=== PATIENT | female | born 1970 | race Caucasian/White ===

== ENCOUNTER → 2016-10-10 | Outpatient (CLI) | payer BC ==
[~2016-10-10] MED LIST: ASPCH81X PO; ATV1 PO; CYCL10TA6 PO; LEVO125T72 PO; NXM/40 PO; OMEG10007 PO; PHEN37.5; VITA10004 PO
--- NOTE | 2016-10-10 10:42 | DIAGNOSTIC IMAGING REPORT ---
ULTRASOUND OF THE THYROID GLAND CLINICAL HISTORY: Hyperthyroidism. Thyroid nodules. COMPARISON STUDY: Thyroid ultrasound dated 02/20/2015. TECHNIQUE: Real-time, grayscale, and color flow sonography of the thyroid gland is performed utilizing a high-frequency linear transducer. Images are reviewed in the transverse and longitudinal planes. FINDINGS: Right lobe: The right lobe of the thyroid gland is slightly diminutive and heterogeneous in echotexture, measuring 3.7 x 1.1 x 1.0 cm. A hypoechoic nodule in the upper pole measures 4 mm (previously measured 3 mm). Left lobe: The left lobe of the thyroid gland is slightly diminutive and heterogeneous in echotexture, measuring 3.4 x 0.9 x 1.2 cm. Isthmus: The thyroid isthmus is normal in appearance and measures 0.2 cm in AP diameter. IMPRESSION: 1. The thyroid gland is slightly diminutive and heterogeneous in echotexture. Correlation with serum thyroid function studies will be required. 2. A subcentimeter nodule in the right lobe is of doubtful significance. Electronically signed by: Vinod Hurley M.D. 10/10/2016 10:41 AM Dictated Date/Time: 10/10/2016 10:39 AM
== END | disposition home or self-care (01) ==
LOC: C.ULTR 10:12
PROVIDERS: ATTEND Family Medicine
DX: E66.3 Overweight (principal); E03.9 Hypothyroidism, unspecified; M54.9 Dorsalgia, unspecified; E04.2 Nontoxic multinodular goiter

== ENCOUNTER → 2017-01-05 | Outpatient (CLI) | payer BC ==
--- NOTE | 2017-01-05 18:25 | DIAGNOSTIC IMAGING REPORT ---
Brain MRI WITHOUT CONTRAST HISTORY: Headache ZOSTER WITHOUT COMPLICATIONS TECHNIQUE: Multiplanar multisequence MRI of the brain was performed without the use of contrast. COMPARISON STUDY: 10/06/2010 FINDINGS: There are no areas of restricted diffusion to suggest acute infarction. The midline structures are intact. The paranasal sinuses are clear. The mastoid air cells are clear. The ventricles and sulci are within normal limits for age. There is no mass, hematoma, midline shift. The major vascular flow-voids at the skull base are well maintained. Multiple punctate foci of increased signal over the frontal parietal convexities including subcortical and periventricular regions. These are unchanged from the prior study. Ventricular system is midline. Cerebellar tonsils are somewhat low-lying. IMPRESSION: 1. No change from the prior exam. 2. Several small foci of increased signal over the cerebral convexities bilaterally considered nonprogressive. 3. Low-lying cerebellar tonsils also unchanged Electronically signed by: Jared Izquierdo M.D. 01/05/2017 6:23 PM Dictated Date/Time: 01/05/2017 6:17 PM
== END | disposition home or self-care (01) ==
LOC: C.MRI 17:40
PROVIDERS: ATTEND Family Medicine
DX: B02.9 Zoster without complications (principal)

== ENCOUNTER → 2017-04-11 | Outpatient (CLI) | payer BC ==
--- NOTE | 2017-04-12 07:55 | MAMMOGRAPHY REPORT ---
BILATERAL DIGITAL SCREENING MAMMOGRAM TOMOSYNTHESIS WITH CAD: 04/11/2017 CLINICAL HISTORY: Routine screening. Patient has no complaints. TECHNIQUE: Breast tomosynthesis in addition to standard 2D mammography was performed. Current study was also evaluated with a Computer Aided Detection (CAD) system. COMPARISON: Comparison is made to exams dated: 03/31/2016 mammogram, 02/17/2015 mammogram, 12/30/2013 ma mmogram, 12/20/2012 mammogram, 11/10/2011 mammogram, and 11/03/2011 mammogram - [facility]. BREAST COMPOSITION: There are scattered areas of fibroglandular density in both breasts. There have been mild involutional changes compared to more remote prior mammograms. FINDINGS: No suspicious mass, architectural distortion or cluster of suspicious microcalcifications is seen. IMPRESSION: ACR BI-RADS CATEGORY 1: NEGATIVE There is no mammographic evidence of malignancy. A 1 year screening mammogram is recommended. The pa tient will receive written notification of the results. Approximately 10% of breast cancers are not detected with mammography. A negative mammographic report should not delay biopsy if a clinically suggestive mass is present. Nancy Amor M.D. ay/:04/11/2017 16:09:14 Photogrammetric Tech: Tere BARR(Adalgisa)(Yuli)([place]), [facility] letter sent: Normal 1/2 BI-RADS Code: ACR BI-RADS Category 1: Negative
== END | disposition home or self-care (01) ==
LOC: C.MAMM 11:21
PROVIDERS: ATTEND Obstetrics & Gynecology
DX: Z12.31 Encounter for screening mammogram for malignant neoplasm of breast (principal)

== ENCOUNTER → 2017-04-24 | Outpatient (CLI) | payer BC | END | disposition home or self-care (01) | LOC: C.PAPS 15:00 | PROVIDERS: ATTEND Obstetrics & Gynecology | DX: Z01.419 Encounter for gynecological examination (general) (routine) without abnormal findings (principal) ==